=== PATIENT | female | born 1950 | race Caucasian/White ===

== ENCOUNTER 2021-04-02 06:00 | Day surgery (SDC) | payer MEDICARE, OTHER ==
[2021-04-01 16:05] LABS: BASOPHILS # (AUTO) 0.1 X10'3 (0-0.2); EOSINOPHILS # (AUTO) 0.2 X10'3 (0-0.9); EOSINOPHILS % (AUTO) 2.7 % (0-6); HEMOGLOBIN 12.3 g/dl (12.0-16.0); LYMPHOCYTES # (AUTO) 1.6 X10'3 (1.1-4.8); LYMPHOCYTES % (AUTO) 27.1 % (21-51); MEAN CORPUSCULAR HEMOGLOBIN 26.6 PG (27.0-31.0); MEAN CORPUSCULAR HGB CONC 31.6 g/dL (33.0-36.5); MEAN CORPUSCULAR VOLUME 84.4 FL (78-98); MEAN PLATELET VOLUME 8.9 FL (7.4-10.4); MONOCYTES # (AUTO) 0.7 X10'3 (0-0.9); MONOCYTES % (AUTO) 11.2 % (2-12); NEUTROPHILS # (AUTO) 3.4 X10'3 (1.8-7.7); PLATELET COUNT 205 X10'3 (140-440); RED BLOOD COUNT 4.63 X10'6 (4.20-5.60); RED CELL DISTRIBUTION WIDTH 18.2 % (11.5-14.5); WHITE BLOOD COUNT 5.8 X10'3 (4.5-11.0)
[2021-04-01 16:16] LABS: APTT 28 SECONDS (22-32)
[2021-04-01 16:20] LABS: ALBUMIN 3.9 G/DL (3.4-5.0); ANION GAP 13 (8-16); BLOOD UREA NITROGEN 17 MG/DL (7-18); BUN/CREATININE RATIO 20.7 (6.6-38.0); CALCIUM 9.6 MG/DL (8.5-10.1); CHLORIDE 105 MMOL/L (99-107); CREATININE 0.82 MG/DL (0.40-0.90); GLUCOSE 141 MG/DL (70-104); POTASSIUM 3.8 MMOL/L (3.5-5.1); SODIUM 142 MMOL/L (135-145); TOTAL CARBON DIOXIDE 24.1 MMOL/L (24-32); eGFR 69 ML/MIN
[~2021-04-02] VITALS: Ht 162.6 cm; Wt 95.1 kg
[2021-04-02] VITALS (16 sets, daily range): BP systolic 118–146; BP diastolic 52–88
[~2021-04-02 06:00] MED LIST: ACET-3068 PO; APIX5TAB3 PO; DILT120C52 PO; FLEC100T2 PO; HYDR12.5 PO; IBUP-1986 PO; NAPR220T67 PO
[2021-04-02] MEDS ORDERED: LORazepam 0.5 MG tablet PO PRN (06:15)
[2021-04-02] MEDS ORDERED: normal saline 1,000 ML IV SCH (06:15)
[2021-04-02] MEDS ORDERED: diphenhydrAMINE 25mg capsule PO PRN (06:15)
[2021-04-02] MEDS ORDERED: METO-384 PO (06:46)
[2021-04-02] MEDS ORDERED: VITA-268 PO (06:46)
[2021-04-02] MEDS ORDERED: Vit D3 PO (06:46)
[2021-04-02] MEDS ORDERED: DILT240C88 PO (06:46)
[2021-04-02] MEDS ORDERED: potassium PO (06:46)
[2021-04-02] MEDS ORDERED: midazolam 1 mg/ML 2ml injection ONE (07:41)
[2021-04-02] MEDS ORDERED: nitroGLYCERIN-Tridil 50MG/D5W 250 ML IV ONE (07:41)
[2021-04-02] MEDS ORDERED: LIDOcaine 1% (10mg/ml)w/preservative injection 20ml MDV ONE (07:41)
[2021-04-02] MEDS ORDERED: fentaNYL/PF 50MCG/1 ML 2ML syringe ONE (07:41)
[2021-04-02] MEDS ORDERED: heparin 1,000unit/ml 10ml vial 10 ML ONE (07:41)
[2021-04-02] MEDS ORDERED: verapamil 2.5 mg/ml inj IV ONE (07:41)
[2021-04-02] MEDS ORDERED: iohexol 350MG/ML 100ml bottle IV ONE (07:42)
[2021-04-02] MEDS ORDERED: iohexol 350 MG/ML 50ML vial IV ONE (07:42)
[2021-04-02] MEDS ORDERED: normal saline 1000ml 1,000 ML IV SCH (11:00)
[2021-04-02] MEDS ORDERED: furosemide 20MG tablet PO ONE ×2 (12:20→12:35)
[2021-04-02] MEDS ORDERED: HYDROcodone/acetaminophen 5mg/325mg tablet PO ONE (12:20)
[2021-04-06 05:49] LABS: ISTAT Hct MIX 33 %PCV (35-48); ISTAT O2 SATURATION MIX VENOUS 55 % (60-80); ISTAT SOURCE BLNK
[2021-04-06 05:50] LABS: ISTAT Hct MIX 34 %PCV (35-48); ISTAT O2 SATURATION MIX VENOUS 67 % (60-80); ISTAT SOURCE BLNK
[2021-04-06 05:50] LABS: ISTAT HGB ART 11.9 g/dl (12.0-16.0); ISTAT Hct ART 35 %PCV (35-48); ISTAT O2 SATURATION ARTERIAL 95 % (95-98); ISTAT SOURCE BLNK
[2021-04-06 05:51] LABS: ISTAT Hct MIX 35 %PCV (35-48); ISTAT O2 SATURATION MIX VENOUS 61 % (60-80); ISTAT O2 SATURATION MIX VENOUS 64 % (60-80); ISTAT SOURCE BLNK
[2021-04-06 06:00] LABS: ISTAT Hct MIX 34 %PCV (35-48); ISTAT Hct MIX 36 %PCV (35-48); ISTAT O2 SATURATION MIX VENOUS 55 % (60-80); ISTAT O2 SATURATION MIX VENOUS 62 % (60-80); ISTAT SOURCE BLNK; ISTAT SOURCE OTHER
[2021-04-06 06:01] LABS: ISTAT Hct MIX 34 %PCV (35-48); ISTAT O2 SATURATION MIX VENOUS 64 % (60-80); ISTAT SOURCE BLNK
[2021-04-06 06:01] LABS: ISTAT Hct MIX 34 %PCV (35-48); ISTAT O2 SATURATION MIX VENOUS 66 % (60-80); ISTAT SOURCE BLNK
[2021-04-06 06:01] LABS: ISTAT Hct MIX 36 %PCV (35-48); ISTAT O2 SATURATION MIX VENOUS 59 % (60-80); ISTAT SOURCE VEN
== END 2021-04-02 17:40 | disposition home or self-care (01) ==
LOC: SSTAY O 06:00
PROVIDERS: ATTEND Internal Medicine Cardiovascular Disease
DX: R53.83 Other fatigue (principal); R06.02 Shortness of breath; I25.10 Atherosclerotic heart disease of native coronary artery without angina pectoris; I48.0 Paroxysmal atrial fibrillation; I08.1 Rheumatic disorders of both mitral and tricuspid valves; Z98.890 Other specified postprocedural states; Z87.891 Personal history of nicotine dependence
CPT/HCPCS: 36415; 76937; 80048; 83880; 85025; 85610; 85730; 93005; 93460; 99152; 99153; A6258; C1769; C1894; J1644; J2250; J3010; J3490; J7030; Q0163; Q9967; 82803; 85014; A4620; A5120